=== PATIENT | female | born 1965 | race Caucasian/White ===

== ENCOUNTER 2016-12-20 13:03 | Inpatient (IN) | payer BC ==
--- NOTE | ~2016-12-20 | OP ---
Record Of Operation [facility] [address] [place]. [address] NAME: KING TRUONG : 61 STATUS : ADM Addie PAT#: [id number] AGE: 51 ADM/REG DATE : 12/20/16 MR#: [id number] REPORT SERV DATE: 12/20/16 DICTATED BY: JASE MOMIN DATE: 12/20/16 REPORT STATUS : Draft TRANSCRIBED BY: MODL DATE: 12/20/16 DATE OF PROCEDURE: 12/20/2016 PREOPERATIVE DIAGNOSIS: Incarcerated umbilical hernia. POSTOPERATIVE DIAGNOSES: 1. Incarcerated umbilical hernia. 2. Multiple omental lesions. PROCEDURE PERFORMED: 1. Exploratory laparotomy. 2. Excision of umbilical hernia sac. 3. Primary repair of umbilical hernia without mesh. 4. Biopsy of omental lesions. SURGEON: Dr. Jase Momin. FELLOW: Dr. Derrick Tamez. ANESTHESIA: 1. General endotracheal tube anesthesia. 2. Local anesthetic. IV FLUIDS: 1400. ESTIMATED BLOOD LOSS: 25 mL. SPECIMENS AND CULTURES: 1. Omental lesions and surgical pathology. 2. Umbilical hernia sac. DRAINS: None. COMPLICATIONS: None. INDICATIONS FOR PROCEDURE: This is a 51-year-old female who presented to the emergency department for evaluation of abdominal pain and was found to have an incarcerated umbilical hernia. She was taken urgently to the operating room for exploration, possible bowel resection, and repair. Risks, benefits, and alternatives were explained to the patient, who understood these and consented to undergo exploratory laparotomy with umbilical hernia repair DESCRIPTION OF PROCEDURE: The patient was brought to the operating room, placed in supine position where general anesthetic was administered. She was intubated, secured to the bed with arms out, and Kruger catheter was placed sterilely. SCDs were placed and turned on. Preoperative antibiotics were administered and her abdomen was prepped and draped sterilely. Record Of Operation [facility] [address] [place]. [address] NAME: KING TRUONG : 61 STATUS : ADM Addie PAT#: [id number] AGE: 51 ADM/REG DATE : 12/20/16 MR#: [id number] REPORT SERV DATE: 12/20/16 DICTATED BY: JASE MOMIN DATE: 12/20/16 REPORT STATUS : Draft TRANSCRIBED BY: MODL DATE: 12/20/16 There was an obvious umbilical hernia defect roughly 10 cm in size with overlying skin changes. A scalpel was used to make an incision superior to this up to the level of the overlying skin at the superior margin of the hernia. Electrocautery was used to dissect down to the hernia sac. Once we were able to identify the hernia sac, we were able to dissect using both blunt dissection and electrocautery around the full circumference of the hernia sac including the overlying skin. The incision was extended inferiorly to include the entire hernia. Once we had the entire hernia freed up from the overlying attachments, blunt dissection electrocautery were used to dissect down to the neck of the hernia sac at the level of fascia. The umbilical defect itself was not very large roughly two to three centimeters in size. Once we were to the level of fascia, we elected to open the hernia sac sharply using Metzenbaum scissors. There was a modest amount of fluid which was serous in nature and this was suctioned away. Hernia sac was divided down to the level of fascia and then circumferentially around the defect using electrocautery. In order to free up the bowel which was within the defect, the inferior aspect of the hernia at the level of the fascia was opened roughly one to two centimeters. We were able to fully deliver the incarcerated bowel and underlying healthy bowel through the defect after a very short period a time in a matter of seconds, the bowel which appeared initially dusky began to peak up and after a minute or two was normal in appearance. We then returned the bowel to the abdomen without resection. The edges of the hernia sac were then debrided off the fascial edge and the fascia was closed primarily without the addition of mesh using 1-0 Vicryl suture in interrupted fashion. The subcutaneous tissues were reapproximated using 3-0 Vicryl sutures and the skin defect was closed using nell. All needle, lap, and instrument counts were correct at the end of the procedure. Dr. Jase Momin was scrubbed for the duration of the procedure. DICTATED BY: MD AKILAH Barillas/KELTON Jase Momin MD / [id number] CC: Jeffy Peters M.D. Sharon Ngo M.D.
--- NOTE | ~2016-12-20 | CN ---
Consultation Report [facility] [address] [place]. [address] NAME: KING TRUONG : 61 STATUS : ADM Addie PAT#: [id number] AGE: 51 ADM/REG DATE : 12/20/16 MR#: [id number] REPORT SERV DATE: 12/21/16 DICTATED BY: JULIET DECEKR DATE: 12/21/16 REPORT STATUS : Draft TRANSCRIBED BY: MODL DATE: 12/21/16 HOSPITALIST CONSULTATION DATE OF CONSULTATION: 12/20/2016 REASON FOR CONSULTATION: Diabetes management and arrhythmia management per Dr. Peters. HISTORY OF PRESENT ILLNESS: This is an awake, alert, and oriented very pleasant 51-year-old female who was admitted to Dr. Jeffy Peters today for umbilical hernia repair. She is currently postoperative day #0 and is reporting significant resolution of her abdominal pain symptoms at this time. We have been asked to manage her diabetes and other medical history while she is in the hospital for this stay. The patient reports a 7-year history of type 2 diabetes, currently controlled on oral agents. Her last A1c was approximately one year ago, and she believes the value was 9. She sees her primary care physician annually to manage this. She also wears a home CPAP for obstructive sleep apnea, which she has done for 17 years. She follows with Pulmonology having had recent pulmonary function tests that were all within normal limits. At this time, she denies all symptoms including chest pain, palpitations, dyspnea, wheezing, headache, dizziness, vision disturbances, abdominal pain, nausea, and vomiting. She reports good pain control postoperatively and is currently tolerating her clear liquid diet without difficulty. PAST MEDICAL HISTORY: Significant for: 1. Type 2 diabetes mellitus. 2. Dysrhythmia/atrial fibrillation. 3. Obstructive sleep apnea. 4. High cholesterol. 5. Hypothyroid post radiation treatment. 6. Depression and anxiety. 7. Personal history of Guillain-Manly syndrome, 1979. PAST SURGICAL HISTORY: Significant for: 1. Umbilical hernia repair, 12/20/2016. 2. Cholecystectomy. 3. with tubal ligation. 4. Arteriogram, 03/2015. The patient's PCP is Dr. Sharon Ngo. She follows with Dr. Gan for Pulmonology as well as Dr. Michael for Cardiology. SOCIAL HISTORY: The patient is and lives at home with her adult daughter. She is a never smoker and also denies alcohol and illicit drug use. Sister is present with her at bedside today. Consultation Report [address] [place]. [address] NAME: KING TRUONG : 61 STATUS : ADM Addie PAT#: [id number] AGE: 51 ADM/REG DATE : 12/20/16 MR#: [id number] REPORT SERV DATE: 12/21/16 DICTATED BY: JULIET DECKER DATE: 12/21/16 REPORT STATUS : Draft TRANSCRIBED BY: KELTON DATE: 12/21/16 FAMILY HISTORY: Mother had a history of cervical cancer and is . Father was at age 85 of natural causes with no known medical history. She has a sister with a history of breast cancer. ALLERGIES: INCLUDE MORPHINE AND PERFLUTREN. HOME MEDICATIONS: Include: 1. Cartia XT 180 mg p.o. twice daily. 2. Prozac 40 mg p.o. at bedtime. 3. Ibuprofen 400 to 600 mg p.o. b.i.d. p.r.n. 4. Levothyroxine 175 mcg p.o. daily. 5. Glucophage 1000 mg p.o. b.i.d. 6. Pravachol 40 mg p.o. at bedtime. REVIEW OF SYSTEMS: A complete 10-point review of systems was negative except as per HPI. PHYSICAL EXAMINATION: VITAL SIGNS: T 97.9, P 83, RR 18, BP 159/60, and SpO2 of 98% on room air. GENERAL: A well-appearing female in no acute distress. NEUROLOGIC: Awake, alert, and oriented x3 without focal deficit. HEENT: Normocephalic and atraumatic without lymphadenopathy. NECK: Supple. No JVD. LUNGS: CTA in all lung parker with normal respiratory effort. CV: Irregular rhythm. Controlled rate. S1 and S2 auscultated without murmur, rub, gallop, or click. ABDOMEN: Soft, round, generally tender to palpation. Bowel sounds hypoactive in all quadrants. Abdominal binder in place. EXTREMITIES: No cyanosis or edema. Cap refill within normal limits. PSYCH: Normal affect. SKIN: Clean, dry, and intact with mucous membranes pink and moist. LABORATORY DATA: Pertinent labs include a serum glucose of 283. Of note, her sodium was 142, chloride of 107, bicarb of 20, and albumin of 3.5. Pertinent imaging, EKG done 12/20/2016 showed normal sinus rhythm with a rate of 96, reviewed with Dr. Lawson. Echocardiogram was completed on 03/07/2015 showing an ejection fraction of 55% per Dr. Jennings. Of note, she had an abdominal CT confirming incarcerated hernia on 12/20/2016. ASSESSMENT AND PLAN: 1. Type 2 diabetes mellitus, this is chronic and she is currently on oral agents, uncontrolled, with blood sugar ranges 247 to 290 while in-house. UA showed ketones, Consultation Report [facility] [address] [place]. [address] NAME: KING TRUONG : 61 STATUS : ADM Addie PAT#: [id number] AGE: 51 ADM/REG DATE : 12/20/16 MR#: [id number] REPORT SERV DATE: 12/21/16 DICTATED BY: JULIET DECKER DATE: 12/21/16 REPORT STATUS : Draft TRANSCRIBED BY: KELTON DATE: 12/21/16 and we will plan aggressive control of her blood sugar while she is in the hospital. We will increase her sliding scale insulin to level 3, asked the certified adaptive physical educator to come in and see her to discuss better management of diabetes. We will restart her metformin when appropriate after her procedure. Monitor her labs and encouraged an ADA diet when she is tolerating an increase in diet. We are also going to add a hemoglobin A1c to her a.m. labs to evaluate, and after discussing with Dr. Ran Lawson, we will also add Levemir 10 units subcutaneous tonight and continue to evaluate her diabetes status. 2. Atrial fibrillation/arrhythmia, this is also chronic and controlled on her current medications which we will continue. We will also monitor her labs and keep her on med/surg telemetry. 3. Obstructive sleep apnea, again this is chronic. She has her home CPAP here, and we will continue that at night per her home settings. We will pursue an aggressive pulmonary toilet adding bronchodilator protocol and supplemental oxygen to maintain her sats greater than or equal to 92% while she is here. At this time, she is reluctant to cough and deep-breathe due to fear of pain and immediately postop. The patient was encouraged to use incentive spirometer that is at the bedside and to take deep breaths in order to prevent respiratory decline. 4. Hypothyroid, this is chronic. We will continue her current medications and monitor her labs. 5. Depression and anxiety, again this is chronic but well controlled on her current medications which we will continue. We will monitor her labs and provide supportive care as needed. 6. High cholesterol, again chronic, continuing her current medications and monitoring her labs. 7. Umbilical hernia repair, this is acute and completed today, 12/20/2016. We will defer to the primary team for management of this condition. Thank you for this consult. We are pleased to follow this patient with you. This consult was completed through thorough review of [employer], old records, [employer], and current chart as well as thorough interview with the patient and her sister. MARIAELENA/KELTON Juliet Decker NP / [id number] CC: Jeffy Peters M.D. Sharon Ngo M.D.
--- NOTE | ~2016-12-20 | HP ---
History And Physical [address] [place]. [address] NAME: KING TRUONG : 61 STATUS : ADM Addie PAT#: [id number] AGE: 51 ADM/REG DATE : 12/20/16 MR#: [id number] REPORT SERV DATE: 12/21/16 DICTATED BY: JASE MOMIN DATE: 12/20/16 REPORT STATUS : Draft TRANSCRIBED BY: MODCherelle DATE: 12/20/16 DATE OF ADMISSION: 12/20/2016 CHIEF COMPLAINT: Abdominal pain. HISTORY OF PRESENT ILLNESS: This is a 51-year-old female with a known umbilical hernia for the last 10+ years, who was bending over this morning and felt severe pain across her abdomen which is persisted ever since. She called the ambulance due to the nature of the pain and presents to the emergency department. Since the onset, she has had occasional bouts of nausea but no emesis. Her last bowel movement was this morning and it was normal. She has not had anything to eat or drink since the pain onset. It does not radiate anywhere. She obtained a CT scan in the emergency department which showed incarcerated bowel and an umbilical hernia. General Surgery was asked to evaluate. REVIEW OF SYSTEMS: The patient denies any fevers or chills, hematemesis, or melena. She has had a 75 pounds weight loss over the last three years, but has done this intentionally through diet and exercise. She denies any mental status changes, heat or cold intolerance, or any musculoskeletal abnormalities. There have been no changes in her urinary habits or stooling patterns. No vision changes. No weakness, numbness, or tingling. PAST MEDICAL HISTORY: 1. Known umbilical hernia. 2. Hypothyroidism. 3. History of rapid heart rate requiring antiarrhythmic medication, though she does not know which. 4. Depression. 5. Diabetes. 6. Dyslipidemia. PAST SURGICAL HISTORY: 1. Laparoscopic cholecystectomy. 2. section and tubal ligation. MEDICATIONS: 1. Diltiazem. 2. Fluoxetine. 3. Ibuprofen as needed. 4. Levothyroxine. 5. Metformin. 6. Pravastatin. ALLERGIES: MORPHINE. FAMILY HISTORY: She has a sister who has breast cancer. History And Physical [address] [place] [facility] [place] [address] NAME: KING TRUONG : 61 STATUS : ADM Addie PAT#: [id number] AGE: 51 ADM/REG DATE : 12/20/16 MR#: [id number] REPORT SERV DATE: 12/21/16 DICTATED BY: JASE MOMIN DATE: 12/20/16 REPORT STATUS : Draft TRANSCRIBED BY: KELTON DATE: 12/20/16 SOCIAL HISTORY: She is employed at [employer]. She has one child. She does not drink, smoke, or use illicit substances. PHYSICAL EXAMINATION: VITAL SIGNS: Temperature 97.9, pulse 97, respirations 18, blood pressure 162/56. GENERAL APPEARANCE: She is alert and oriented, is somewhat anxious, but pleasant in conversation. She is in no distress. HEAD, EYES, EARS, NOSE, AND THROAT: There is some element of exophthalmos with round facies. No facial droop. Oropharynx and conjunctiva are pink and moist. Dentition is good. Hearing is grossly normal. NECK: Reveals no cervical lymphadenopathy. CHEST: Lungs are clear to auscultation bilaterally without wheezes or crackles. Normal respiratory effort. CARDIOVASCULAR: Heart rate is regular. Cap refill time less than 2 seconds. ABDOMINAL: Obese, somewhat protuberant abdomen which is soft and nondistended. There is obvious umbilical hernia with overlying skin changes and erythema concerning for incarcerated bowel beneath. No masses are palpated. EXTREMITIES: Reveals full range of motion x4 without deformity. No edema. PSYCHIATRIC: She is somewhat anxious, but does have appropriate mood and affect. Speech patterns are normal. NEUROLOGIC: Cranial nerves II through XII grossly intact. There are no focal deficits. LABORATORY VALUES: Significant for CBC with white blood cell count of 3.9, hemoglobin 10.9, platelets 108. Comprehensive metabolic panel significant for a metabolic acidosis with CO2 of 20, creatinine was 0.56, glucose of 283, calcium of 8.3, bilirubin of 1.4 and an alkaline phosphatase of 212. All other values normal. CT scan as per history of present illness. ASSESSMENT AND PLAN: This is a 51-year-old female with incarcerated umbilical hernia and overlying skin changes. This is somewhat concerning for incarcerated possible necrotic bowel. The patient will be consented for open umbilical hernia repair with possible bowel resection. She will be retained in-house postoperatively for a period of observation, diet tolerance, and pain control. Risks, benefits, and alternatives including bleeding, infection, scarring, injury to surrounding structures, intraabdominal abscess, hernia recurrence, risk of blood clots, anesthesia risks, damage to surrounding structures in the operative field and any other unforeseen risks were explained to the patient who understood these and consented to go repair of her umbilical hernia. DICTATED BY: MD AKILAH Barillas/KELTON Jase Momin MD / [id number] History And Physical [address] [address] NAME: KING TRUONG : 61 STATUS : ADM Addie PAT#: [id number] AGE: 51 ADM/REG DATE : 12/20/16 MR#: [id number] REPORT SERV DATE: 12/21/16 DICTATED BY: JASE MOMIN DATE: 12/20/16 REPORT STATUS : Draft TRANSCRIBED BY: KELTON DATE: 12/20/16 CC: Jennifer Martin M.D.
--- NOTE | ~2016-12-20 | DS ---
Discharge Summary [facility] [address] [place]. [address] NAME: KING TRUONG : 61 STATUS : DIS IN PAT#: [id number] AGE: 51 ADM/REG DATE : 12/20/16 MR#: [id number] REPORT SERV DATE: 01/01/17 DICTATED BY: JEFFY BECERRIL DATE: 12/31/16 REPORT STATUS : Draft TRANSCRIBED BY: KELTON DATE: 12/31/16 Data Collection from hospitalization DISCHARGE DIAGNOSES: 1. Incarcerated umbilical hernia. 2. Diabetes. 3. Hypertension. 4. Atrial fibrillation. 5. Obstructive sleep apnea. 6. Morbid obesity. 7. History of Guillain-Scotts. 8. Hypothyroidism. 9. Depression. 10.Dyslipidemia. CONSULTATIONS: Juliet Decker NP PROCEDURES: 1. Exploratory laparotomy, excision of umbilical hernia sac, primary repair of umbilical hernia without mesh, and biopsy of omental lesions, 12/20/2016. 2. CT scan of the abdomen and pelvis without contrast, 12/20/2016. PATHOLOGY: Tissue from umbilical hernia repair - hernia sac with areas of fibrosis and inflammatory/reactive changes. Specimen submitted as "omental implants" excision - fibrotic nodules and a few fibrous adhesions. DISCHARGE MEDICATIONS: Cartia XT 180 mg twice a day, Prozac 40 mg at bedtime, Advil 400 to 600 mg twice a day as needed, levothyroxine 175 mcg daily, Glucophage 100 mg twice a day, Pravachol 40 mg at bedtime, Zofran 4 mg one every six hours as needed, Lantus 15 units subcutaneously daily, and Percocet 5/325 one to two tablets every 4 to 6 hours as needed. CONDITION ON DISCHARGE: Stable. DISPOSITION: The patient was discharged home on a low-cholesterol 1800-calorie diabetic diet with no concentrated carbohydrates and activities as instructed. She would follow up with me, 01/05/2017. HOSPITAL COURSE: This is a 51-year-old female, who has a known umbilical hernia over the past 10 plus years, who was bending over on the morning of this admission and felt severe pain across the abdomen which had persisted ever since. She called the ambulance due to the nature of the pain and presented to the emergency department. Since the onset, she had had occasional bouts of nausea but no emesis. Her last bowel movement was on the morning of this admission, and it was normal. She had not had anything to eat or drink since the onset of pain. It did not radiate anywhere. A CT scan of the abdomen and pelvis in the emergency department showed incarcerated bowel and an umbilical hernia. Treatment options were discussed, and it was elected to proceed with surgical intervention. She was admitted to the hospital at this time for further evaluation and treatment. Discharge Summary [place] [address] [place]. [address] NAME: KING TRUONG : 61 STATUS : DIS IN PAT#: [id number] AGE: 51 ADM/REG DATE : 12/20/16 MR#: [id number] REPORT SERV DATE: 01/01/17 DICTATED BY: JEFFY BECERRIL DATE: 12/31/16 REPORT STATUS : Draft TRANSCRIBED BY: KELTON DATE: 12/31/16 Upon admission, she was taken to the operating room where she underwent the above-mentioned procedure. She tolerated this well, and there were no complications. Postoperatively, she was seen by Juliet Decker regarding diabetes management and arrythmia management. She reported significant resolution of her abdominal pain symptoms at this time. She reports a 7-year history of type 2 diabetes, currently controlled on oral treatment. Her last hemoglobin A1c was approximately one year ago, and she believes the value was 9. She sees her primary care physician annually to manage this. She also wears a home CPAP for obstructive sleep apnea which she had done for 17 years. She follows with Pulmonology having had recent pulmonary function tests that were all within normal limits. She reports good pain control postoperatively and was currently tolerating her clear liquid diet without difficulty. Urinalysis showed ketones. We would plan aggressive control of her blood sugars while she was in the hospital. Sliding scale insulin was increased to level 3. Metformin would be restarted when appropriate postoperatively. We would monitor her labs and encourage her to follow a diabetic diet once she tolerated an increase in her diet. Hemoglobin A1c was going to be checked. Levemir was going to be added to her regimen. She has chronic atrial fibrillation/arrhythmia which is also chronic and controlled on her current medications which we are going to continue. She has chronic obstructive sleep apnea. She has her home CPAP here, and this would be continued at night. We would pursue aggressive pulmonary toilet adding bronchodilator protocol and supplemental oxygen to maintain saturations greater than or equal to 92% while she was here. At this time, she said she was reluctant to cough or deep-breathe due to the fear of pain and being immediately postop. We encouraged her to use incentive spirometer at the bedside and take deep breaths in order to prevent respiratory decline. She has chronic depression and anxiety which is well controlled on her current medications and we continued these. Her current hypercholesterolemia medications were also continued. On postop day #1, her pain had resolved, she said she felt much better, she was hungry. The [employer] was discontinued. She was started on oral medications. IV fluids were stopped. She was placed on a regular diet. Kruger catheter was removed. The patient said she had previously been on Levemir but stopped this about one year ago. She denied any chest pain or shortness of breath. She did have some abdominal soreness and pain. She was placed on an 1800-calorie diabetic diet. NovoLog was added with meals. She underwent diabetes education. On the , she was comfortable. She had no chest pain or shortness of breath. Hemoglobin A1c was 10.7. Levemir was increased. She was currently in a normal sinus rhythm. Discharge planning was performed. On 12/23/2016, she was comfortable. She remained afebrile. She was alert and cooperative. She had better diabetes control at this time. She was beginning to pass flatus. She has not had a bowel movement. She said she was feeling much better. She was tolerating her diet. MiraLAX was given. Due to her improved and stable condition, she was discharged home with the above-stated instructions. Information collected by: Selene Madison I submit the above information as my discharge summary. ARASH/KELTON Discharge Summary [place] [address] [place] [address] NAME: KING TRUONG : 61 STATUS : DIS IN PAT#: [id number] AGE: 51 ADM/REG DATE : 12/20/16 MR#: [id number] REPORT SERV DATE: 01/01/17 DICTATED BY: JEFFY BECERRIL DATE: 12/31/16 REPORT STATUS : Draft TRANSCRIBED BY: KELTON DATE: 12/31/16 Jeffy Becerril M.D. / [id number] CC: Jennifer Martin M.D.
[2016-12-20 12:31] LABS: BASOPHILS 0.5 %; BASOPHILS ABSOLUTE 0.02 10/3/uL (0.0-0.16); EOSINOPHILS 0.5 %; EOSINOPHILS ABSOLUTE 0.02 10/3/uL (0.0-0.53); HEMATOCRIT 37.6 % (36.0-48.0); HEMOGLOBIN 10.9 g/dL (12.0-16.0); LYMPHOCYTES 11.6 %; LYMPHOCYTES ABSOLUTE 0.45 10/3/uL (0.67-4.30); MEAN CORPUSCULAR HEMOGLOB 21.9 pg (26.0-34.0); MEAN CORPUSCULAR VOLUME 75.7 fL (80-100); MEAN PLATELET VOLUME 10.6 fL (9.2-13.0); MONOCYTES 5.7 %; MONOCYTES ABSOLUTE 0.22 10/3/uL (0.21-1.20); NEUTROPHILS 81.7 %; NEUTROPHILS ABSOLUTE 3.16 10/3/uL (2.02-8.40); PLATELET COUNT 108 10/3/uL (150-400); RBC DISTRIBUTION WIDTH 16.4 % (12.0-16.0); RED CELL COUNT 4.97 10/6/uL (4.0-5.6); WHITE BLOOD CELLS 3.9 10/3/uL (4.5-10.5)
[2016-12-20 12:32] LABS: MANUAL DIFF NO %
[2016-12-20 12:48] LABS: A/G RATIO 0.9 (0.7-1.9); ALBUMIN 3.5 G/DL (3.5-5.0); ALKALINE PHOSPHATASE 212 U/L (45-117); BUN (BLOOD UREA NITROGEN) 6 MG/DL (6-23); CALCIUM, SERUM 8.3 MG/DL (8.5-10.4); CHLORIDE, SERUM 107 MMOL/L (96-112); CO2 (CARBON DIOXIDE) 20 MMOL/L (24-34); CREATININE 0.56 MG/DL (0.55-1.02); GFR AFRICAN AMERICAN 123 ML/MIN (>=60); GFR NON AFRICAN AMERICAN 106 ML/MIN (>=60); GLOBULIN 3.8 G/DL (2.5-4.1); GLUCOSE, SERUM 283 MG/DL (60-99); SGOT(AST) 28 U/L (5-40); SGPT(ALT) 28 U/L (5-65); SODIUM, SERUM 142 MMOL/L (135-148); TOTAL BILIRUBIN 1.4 MG/DL (0-1.2); TOTAL PROTEIN 7.3 G/DL (6.0-8.5)
[~2016-12-20 13:03] MED LIST: ASAB PO; CARDCD180 PO; COREG3 PO; GLUCOPHAGE1000 MG PO; LEVOTHYROXIN175 MCG PO; NORV10 PO; PROZAC40 MG PO
[2016-12-20 14:02] LABS: ASCORBIC ACID (UR NOT ORDER) NEG (NEG); BILIRUBIN, URINE NEGATIVE (NEG); ER URINALYSIS TAT 0 Hrs 09 Mins; KETONE, URINE 80 MG/DL (NEG); LEUKOCYTE ESTERASE(NOT OR NEG (NEG); NITRITE (URINE) NEG (NEG); WBC (NOT ORDERED) (RFLEX) 1 (0-5)
[2016-12-20] MEDS ORDERED: ADVIL PO (15:23)
[2016-12-20] MEDS ORDERED: CARTIA XT180 MG/24 PO (15:24)
[2016-12-20] MEDS ORDERED: PRAVACHOL40 MG PO (15:24)
[2016-12-20] MEDS ORDERED: LEVOTHYROXIN175 MCG PO (15:24)
[2016-12-20] MEDS ORDERED: PROZAC40 MG PO (15:24)
[2016-12-20] MEDS ORDERED: GLUCOPHAGE1000 MG PO (15:25)
[2016-12-21 07:36] LABS: BASOPHILS 0.2 %; BASOPHILS ABSOLUTE 0.01 10/3/uL (0.0-0.16); EOSINOPHILS 0 %; HEMOGLOBIN 9.7 g/dL (12.0-16.0); IMMATURE GRANULOCYTES 0.4 %; IMMATURE GRANULOCYTES ABSOLUTE 0.02 10/3/uL (0.0-0.11); LYMPHOCYTES 12.2 %; LYMPHOCYTES ABSOLUTE 0.63 10/3/uL (0.67-4.30); MEAN CORPUS HGB CONC 29.1 g/dL (32.0-36.0); MEAN CORPUSCULAR HEMOGLOB 22.1 pg (26.0-34.0); MEAN CORPUSCULAR VOLUME 75.9 fL (80-100); MEAN PLATELET VOLUME 9.9 fL (9.2-13.0); MONOCYTES 9.5 %; MONOCYTES ABSOLUTE 0.49 10/3/uL (0.21-1.20); NEUTROPHILS 77.7 %; NEUTROPHILS ABSOLUTE 4.02 10/3/uL (2.02-8.40); PLATELET COUNT 112 10/3/uL (150-400); RBC DISTRIBUTION WIDTH 16.6 % (12.0-16.0); RED CELL COUNT 4.39 10/6/uL (4.0-5.6); WHITE BLOOD CELLS 5.2 10/3/uL (4.5-10.5)
[2016-12-21 07:38] LABS: HEMATOCRIT 33.3 % (36.0-48.0); MANUAL DIFF NO %
[2016-12-21 07:59] LABS: A/G RATIO 0.9 (0.7-1.9); ALBUMIN 2.9 G/DL (3.5-5.0); BUN (BLOOD UREA NITROGEN) 9 MG/DL (6-23); CHLORIDE, SERUM 106 MMOL/L (96-112); CO2 (CARBON DIOXIDE) 23 MMOL/L (24-34); CREATININE 0.66 MG/DL (0.55-1.02); GFR AFRICAN AMERICAN 117 ML/MIN (>=60); GFR NON AFRICAN AMERICAN 101 ML/MIN (>=60); GLOBULIN 3.4 G/DL (2.5-4.1); GLUCOSE, SERUM 317 MG/DL (60-99); POTASSIUM, SERUM 3.9 MMOL/L (3.5-5.3); SGOT(AST) 24 U/L (5-40); SGPT(ALT) 29 U/L (5-65); SODIUM, SERUM 140 MMOL/L (135-148); TOTAL BILIRUBIN 1.4 MG/DL (0-1.2); TOTAL PROTEIN 6.3 G/DL (6.0-8.5)
[2016-12-21 08:01] LABS: ALKALINE PHOSPHATASE 155 U/L (45-117)
[2016-12-23 05:31] LABS: BUN (BLOOD UREA NITROGEN) 10 MG/DL (6-23); CHLORIDE, SERUM 111 MMOL/L (96-112); CO2 (CARBON DIOXIDE) 22 MMOL/L (24-34); CREATININE 0.38 MG/DL (0.55-1.02); GFR AFRICAN AMERICAN 140 ML/MIN (>=60); GFR NON AFRICAN AMERICAN 121 ML/MIN (>=60); POTASSIUM, SERUM 3.8 MMOL/L (3.5-5.3); SODIUM, SERUM 143 MMOL/L (135-148)
[2016-12-23 05:36] LABS: GLUCOSE, SERUM 192 MG/DL (60-99)
== END 2016-12-23 14:29 | disposition home or self-care (01) | DRG 354 ==
LOC: ER 13:03 → 5SO 19:35
PROVIDERS: Hospitalist; Nurse Practitioner; Surgery; Transplant Surgery
PROC: 0WQF0ZZ Repair Abdominal Wall, Open Approach (ICD-10-PCS; 2016-12-20)
PROC: 0DBS0ZZ (ICD-10-PCS; principal; 2016-12-20 16:15)
DX: K42.0 Umbilical hernia with obstruction, without gangrene (principal); Z68.42 Body mass index [BMI] 45.0-49.9, adult; E87.2 Acidosis; G61.0 Guillain-Barre syndrome; E11.65 Type 2 diabetes mellitus with hyperglycemia; E66.01 Morbid (severe) obesity due to excess calories; Z88.8 Allergy status to other drugs, medicaments and biological substances; Z88.5 Allergy status to narcotic agent; Z79.899 Other long term (current) drug therapy; F32.9 Major depressive disorder, single episode, unspecified; I48.2 Chronic atrial fibrillation; G47.33 Obstructive sleep apnea (adult) (pediatric); E03.9 Hypothyroidism, unspecified; F41.9 Anxiety disorder, unspecified; Z79.84 Long term (current) use of oral hypoglycemic drugs; I10 Essential (primary) hypertension; Z90.49 Acquired absence of other specified parts of digestive tract; Z98.890 Other specified postprocedural states; Z80.8 Family history of malignant neoplasm of other organs or systems; N80.8 Other endometriosis
CPT/HCPCS: 74176; 80048; 80053; 81001; 82962; 83036; 83690; 83735; 85025; 88302; 88305; 93005; 96374; 96375; 96376; 99285; A9270-GY; J1170; J2250; J2405; J2543; J2550; J2710; J3010